=== PATIENT | male | born 1990 | race Hispanic/Latino ===

== ENCOUNTER 2022-05-21 07:27 | Emergency (ER) | payer OTHER ==
[~2022-05-21] VITALS: Ht 175.3 cm; Wt 77.5 kg
[2022-05-21] MEDS ORDERED: KETOROLAC 60MG 2ML VIAL IM ONE (09:25)
[2022-05-21] MEDS ORDERED: methocarbamoL 750 MG TAB PO ONE (09:25)
[2022-05-21] MEDS ORDERED: diazePAM 5MG TABLET PO ONE (10:20)
[2022-05-21] MEDS ORDERED: LIDOCAINE 5% (LIDODERM) PATCH TD ONE (10:20)
[2022-05-21] MEDS ORDERED: NAPR-837 PO (10:55)
[2022-05-21] MEDS ORDERED: METH-1165 PO (10:55)
[2022-05-21] MEDS ORDERED: LIDO5DIS41 TD (10:55)
[2022-05-21 11:00] VITALS: BP 116/68
[2022-05-21] MEDS ORDERED: **NOTE PATIENT COMMENT** MISC XX SCH (21:00)
== END 2022-05-21 11:00 | disposition home or self-care (01) ==
LOC: M ED 07:27 → EDBD 07:27 → M ED 11:00
DX: S39.012A Strain of muscle, fascia and tendon of lower back, initial encounter (principal); X58.XXXA Exposure to other specified factors, initial encounter; Y92.89 Other specified places as the place of occurrence of the external cause; Z91.018 Allergy to other foods; Z87.891 Personal history of nicotine dependence
CPT/HCPCS: 96372; 99284; J1885

== ENCOUNTER 2023-05-17 08:47 | Inpatient (IN) | payer OTHER ==
[~2023-05-17] VITALS: Ht 175.3 cm; Wt 88.7 kg
[~2023-05-17 08:47] MED LIST: LIDO5DIS41 TD; METH-1165 PO; NAPR-837 PO
[2023-05-17 09:36] LABS: BASO # 0.1 10^3/uL (0.0-0.2); BASO % 0.8 % (0.0-1.0); EOS # 0.1 10^3/uL (0.0-0.5); EOS % 1.3 % (0.0-3.0); HEMATOCRIT 43.6 % (42.0-52.0); HEMOGLOBIN 14.6 g/dl (13.5-17.5); LYMPH # 2.4 10^3/uL (1.5-5.0); LYMPH % 38.2 % (24.0-44.0); MEAN CORPUSCULAR HEMOGLOBIN 29.4 pg (27.0-33.0); MEAN CORPUSCULAR HGB CONC 33.5 g/dl (32.0-36.5); MEAN CORPUSCULAR VOLUME 87.9 fl (80.0-96.0); MONO # 0.4 10^3/uL (0.0-0.8); MONO % 6.3 % (2.0-8.0); NEUTROPHILS # 3.3 10^3/uL (1.5-8.5); NEUTROPHILS % 52.9 % (36.0-66.0); PLATELET COUNT, AUTOMATED 307 10^3/uL (150-450); RED BLOOD COUNT 4.96 10^6/uL (4.30-6.10); WHITE BLOOD COUNT 6.2 10^3/uL (4.0-10.0)
[2023-05-17 09:49] LABS: INR 1.01; PARTIAL THROMBOPLASTIN TIME 24.3 SECONDS (24.8-34.2)
[2023-05-17 10:07] LABS: LIPASE 29 U/L (12-53)
[2023-05-17 10:08] LABS: AMYLASE 88 U/L (30-118)
[2023-05-17 10:09] LABS: ALBUMIN 4.2 G/DL (3.2-5.2); ALKALINE PHOSPHATASE 88 U/L (46-116); ALT/SGPT 12 U/L (7.0-40); AST/SGOT 21 U/L (<34); BILIRUBIN,DIRECT 0.2 MG/DL (<0.4); BILIRUBIN,TOTAL 0.5 MG/DL (0.3-1.2); BLOOD UREA NITROGEN 17 MG/DL (9-23); CALCIUM LEVEL 9.6 MG/DL (8.5-10.1); CARBON DIOXIDE LEVEL 26 MMOL/L (20-31); CHLORIDE LEVEL 104 MMOL/L (98-107); CK-MB VALUE MASS < 1.0 NG/ML (<3.6); CREATININE FOR GFR 1.03 MG/DL (0.70-1.30); GLOMERULAR FILTRATION RATE > 60.0 (>60); GLUCOSE, FASTING 94 MG/DL (60-100); POTASSIUM SERUM 4.5 MMOL/L (3.5-5.1); SODIUM LEVEL 141 MMOL/L (136-145); TOTAL PROTEIN 7.8 G/DL (5.7-8.2)
[2023-05-17 10:10] LABS: RSV AMPLIFICATION NEGATIVE (NEGATIVE)
[2023-05-17] MEDS ORDERED: MORPHINE 2 MG/ML 1ML VIAL IV PRN (10:10)
[2023-05-17 10:13] LABS: CPK CREATINE PHOSPHOKINASE 169 U/L (46-171); MB/CK RELATIVE INDEX 0.59 (< OR =4)
[2023-05-17] MEDS ORDERED: NS 1,000 ML IV ONE ×2 (10:30→12:25)
[2023-05-17] MEDS: MORPHINE 4 MG/ML 1ML VIAL IV PRN ×2 (10:51→11:57)
[2023-05-17] MEDS ORDERED: ISOVUE-370 76% 100ML VIAL As Ordered ONE (10:57)
[2023-05-17 12:11] LABS: APPEARANCE, URINE CLEAR (CLEAR); BACTERIA, URINE AUTO NEGATIVE (NEGATIVE); BILIRUBIN, URINE AUTO NEGATIVE (NEGATIVE); BLOOD, URINE BLOOD NEGATIVE (NEGATIVE); COLOR, URINE YELLOW (YELLOW); GLUCOSE, URINE (UA) AUTO NEGATIVE (NEGATIVE); KETONE, URINE AUTO NEGATIVE (NEGATIVE); LEUKOCYTE ESTERASE, URINE AUTO NEGATIVE (NEGATIVE); NITRITE, URINE AUTO NEGATIVE (NEGATIVE); PROTEIN, URINE AUTO NEGATIVE (NEGATIVE); RBC, URINE AUTO 0 /HPF (0-3); SPECIFIC GRAVITY URINE AUTO 1.033 (1.002-1.035); SQUAMOUS EPITHELIAL CELL UR AU 0 /HPF (0-6); UROBILINOGEN, URINE AUTO 0.2 mg/dL (0.0-2.0); WBC, URINE AUTO 1 /HPF (0-3)
[2023-05-17] MEDS ORDERED: MED REC IN PROGRESS XX SCH (12:25)
[2023-05-17] MEDS ORDERED: GLUCAGON INJ 1MG VIAL SC PRN (12:30)
[2023-05-17] MEDS ORDERED: GLUCOSE 4GM CHEW TABLET PO PRN (12:30)
[2023-05-17] MEDS ORDERED: DEXTROSE 50% 50ML SYRINGE IV PRN (12:30)
[2023-05-17] MEDS ORDERED: KETOROLAC 30 MG/ML 1ML VIAL IV ONE (12:30)
[2023-05-17] MEDS ORDERED: NALOXONE INJ 0.4MG/1ML VIAL IV PRN (12:30)
[2023-05-17] MEDS ORDERED: PEPT262S PO (12:58)
[2023-05-17] MEDS ORDERED: CETI-24 PO (12:58)
[2023-05-17] MEDS ORDERED: HOME MED LIST COMPLETE! XX SCH (13:05)
[2023-05-17] MEDS: MORPHINE 2 MG/ML 1ML VIAL IV PRN ×4 (13:51→23:13)
[2023-05-17 15:43] VITALS: BP 145/81; TEMP 99.5; O2SAT 98
[2023-05-17] MEDS: NS 1,000 ML IV SCH (17:39)
[2023-05-17 20:00] VITALS: BP 132/73; TEMP 98.7; O2SAT 96
[2023-05-18] MEDS: MORPHINE 2 MG/ML 1ML VIAL IV PRN ×3 (02:36→07:59)
[2023-05-18] MEDS: NS 1,000 ML IV SCH ×2 (02:36→08:30)
[2023-05-18 06:00] VITALS: BP 128/63; TEMP 97.3; O2SAT 97
[2023-05-18] MEDS ORDERED: SENOKOT S TAB PO PRN (08:45)
[2023-05-18] MEDS ORDERED: PERCOCET 5MG/325MG TAB PO ONE (08:45)
[2023-05-18] MEDS ORDERED: MIRALAX *UNIT DOSE* 17GM PACKET PO PRN (08:45)
[2023-05-18] MEDS ORDERED: PERCOCET 5MG/325MG TAB PO PRN ×2 (08:45)
[2023-05-18] MEDS ORDERED: MOM 30ML SUSPENSION UDC PO PRN (08:45)
[2023-05-18] MEDS ORDERED: KETOROLAC 30 MG/ML 1ML VIAL IV ONE (08:50)
[2023-05-18] MEDS ORDERED: ENOXAPARIN 40MG/0.4ML SYRINGE (J1650 PER 10MG) SC ONE (12:05)
[2023-05-18] MEDS ORDERED: MIRA3350 PO ×2 (12:30→14:46)
[2023-05-18] MEDS ORDERED: SENN-52 PO (12:30)
[2023-05-18] MEDS ORDERED: PERC5TAB12 PO ×2 (12:30→14:46)
[2023-05-18] MEDS ORDERED: ASPI81CH33 PO ×2 (12:36→13:10)
[2023-05-18] MEDS ORDERED: SENO8.6T10 PO (14:46)
[2023-05-18] MEDS ORDERED: ECOT81TA5 PO (14:48)
[2023-05-18] MEDS ORDERED: KETOROLAC 30 MG/ML 1ML VIAL IV SCH (15:00)
[2023-05-19] MEDS ORDERED: ENOXAPARIN 40MG/0.4ML SYRINGE (J1650 PER 10MG) SC SCH (09:00)
== END 2023-05-18 15:26 | disposition home or self-care (01) | DRG 563 ==
LOC: EDBD 08:47 → M ED 08:47 → M ED INP 12:22 → ENRESERV 15:15 → M MS4PR 16:00
PROVIDERS: ADMIT General Practice; ATTEND General Practice
DX: S82.872A Displaced pilon fracture of left tibia, initial encounter for closed fracture (principal); S92.322A Displaced fracture of second metatarsal bone, left foot, initial encounter for closed fracture; S92.332A Displaced fracture of third metatarsal bone, left foot, initial encounter for closed fracture; Z87.891 Personal history of nicotine dependence; V28.49XA Other motorcycle driver injured in noncollision transport accident in traffic accident, initial encounter; Y92.410 Unspecified street and highway as the place of occurrence of the external cause; Y93.89 Activity, other specified; Y99.8 Other external cause status

== ENCOUNTER 2023-05-28 07:03 | Inpatient (IN) | payer OTHER ==
[~2023-05-28] VITALS: Ht 175.3 cm; Wt 75.8 kg
[~2023-05-28 07:03] MED LIST changes: +ACET-897 PO; +ASPI81CH33 PO; +CETI-24 PO; +ECOT81TA5 PO; +MIRA3350 PO; +PEPT262S PO; +PERC5TAB12 PO; +SENN-52 PO; +SENO8.6T10 PO; +TRANEXAMIC ACID INJection 1,000 MG in NS 100 ML IV ONE; +ceFAZolin SOD 2 GM in IV 1 EA IV ONE
[2023-05-28] MEDS ORDERED: LR 1,000 ML IV SCH ×3 (07:15→17:35)
[2023-05-28] MEDS ORDERED: LIDOCAINE 1% SDV 5ML VIAL PN ONE (07:15)
[2023-05-28] MEDS ORDERED: EPINEPHrine INJ 1 MG/ML 1ML AMP PN ONE (07:15)
[2023-05-28] MEDS ORDERED: dexAMETHasone 10MG/1ML VIAL PRES.FREE PN ONE (07:15)
[2023-05-28] MEDS ORDERED: fentaNYL 100 MCG/2 ML INJECTION IV PRN ×2 (07:15→15:55)
[2023-05-28] MEDS ORDERED: ROPIvacaine 0.5% 30ML VIAL PN ONE ×2 (07:15→08:10)
[2023-05-28] MEDS: MIDAZOLAM INJ 2MG/2ML VIAL IV PRN ×2 (08:51→08:53)
[2023-05-28] MEDS ORDERED: LIDOCAINE 2% 100MG/5ML SDV (FOR ANES.) As Ordered ONE (09:47)
[2023-05-28] MEDS ORDERED: MIDAZOLAM INJ 2MG/2ML VIAL As Ordered ONE (09:47)
[2023-05-28] MEDS ORDERED: ROCURONIUM BROMIDE 50MG/5ML VIAL As Ordered ONE ×4 (09:47→14:46)
[2023-05-28] MEDS ORDERED: fentaNYL 100 MCG/2 ML INJECTION As Ordered ONE ×2 (09:47→09:54)
[2023-05-28] MEDS ORDERED: propofoL 200 MG/20 ML VIAL As Ordered ONE (09:47)
[2023-05-28] MEDS ORDERED: ONDANSETRON 4MG 2ML VIAL As Ordered ONE (09:47)
[2023-05-28] MEDS ORDERED: SUGAMMADEX SODIUM 500 MG/5 ML VIAL (BRIDION) As Ordered ONE (09:54)
[2023-05-28] MEDS ORDERED: TRANEXAMIC ACID 100 MG/ML 10ML VIAL As Ordered ONE ×3 (10:07→12:29)
[2023-05-28] MEDS ORDERED: PHENYLEPHRINE 10MG/ML 1ML VIAL As Ordered ONE (10:50)
[2023-05-28] MEDS ORDERED: ACETAMINOPHEN 1000MG 100ML IV BAG As Ordered ONE (12:12)
[2023-05-28] MEDS ORDERED: dexmedeTOMIDine (4MCG/ML)200MCG/50ML BTL (PRECEDEX) As Ordered ONE (12:13)
[2023-05-28] MEDS ORDERED: ceFAZolin 2 GM/D5W 50 ML IV BAG As Ordered ONE (13:23)
[2023-05-28] MEDS ORDERED: VANCOMYCIN 1000MG/20ML VIAL As Ordered ONE (15:03)
[2023-05-28] MEDS ORDERED: HYDROMORPHONE HCL 0.5 MG/ 0.5 ML SYRINGE IV PRN (15:55)
[2023-05-28] MEDS ORDERED: oxyCODONE 5MG TAB PO PRN (15:55)
[2023-05-28] MEDS ORDERED: ONDANSETRON 4MG 2ML VIAL IV PRN (15:55)
[2023-05-28 17:45] VITALS: BP 160/78; TEMP 99.1; O2SAT 98
[2023-05-28 18:15] VITALS: BP 139/76; TEMP 98.7; O2SAT 97
[2023-05-28] MEDS ORDERED: MIRALAX *UNIT DOSE* 17GM PACKET PO PRN (18:20)
[2023-05-28] MEDS ORDERED: PERCOCET 5MG/325MG TAB PO PRN (18:20)
[2023-05-28] MEDS ORDERED: MORPHINE 2 MG/ML 1ML VIAL IV PRN (18:20)
[2023-05-28] MEDS ORDERED: ACET1TAB55 PO (19:09)
[2023-05-28] MEDS ORDERED: CELE1CAP9 PO (19:14)
[2023-05-28] MEDS ORDERED: GABA-282 PO (19:14)
[2023-05-28 19:15] VITALS: BP 146/73; TEMP 99.3; O2SAT 99
[2023-05-28] MEDS ORDERED: HOME MED LIST COMPLETE! XX SCH (19:20)
[2023-05-28 20:15] VITALS: BP 144/72; TEMP 100; O2SAT 97
[2023-05-28] MEDS: SENNA 8.6 MG TAB (SENOKOT) PO SCH (20:54)
[2023-05-28] MEDS: DOCUSATE SODIUM 100MG CAPSULE PO SCH (20:54)
[2023-05-28] MEDS: ACETAMINOPHEN TAB 650MG DOSE (2X325MG) PO PRN (21:11)
[2023-05-28 21:15] VITALS: BP 148/70; TEMP 99; O2SAT 96
[2023-05-28 22:15] VITALS: BP 141/64; TEMP 98.4; O2SAT 97
[2023-05-29] MEDS ORDERED: MORPHINE 2 MG/ML 1ML VIAL IV ONE (02:00)
[2023-05-29] MEDS ORDERED: KETOROLAC 30 MG/ML 1ML VIAL IV ONE (02:00)
[2023-05-29 02:15] VITALS: BP 178/90; TEMP 97; O2SAT 96
[2023-05-29] MEDS: PERCOCET 5MG/325MG TAB PO PRN ×2 (03:21→07:49)
[2023-05-29] MEDS ORDERED: MORPHINE 4 MG/ML 1ML VIAL IV PRN (05:00)
[2023-05-29 06:00] VITALS: BP 156/84; TEMP 97.6; O2SAT 96
[2023-05-29 06:14] VITALS: BP 156/84; TEMP 97.6; O2SAT 96
[2023-05-29 06:41] LABS: HEMATOCRIT 34.2 % (42.0-52.0); HEMOGLOBIN 11.3 g/dl (13.5-17.5); MEAN CORPUSCULAR HEMOGLOBIN 28.8 pg (27.0-33.0); PLATELET COUNT, AUTOMATED 465 10^3/uL (150-450); RED BLOOD COUNT 3.93 10^6/uL (4.30-6.10)
[2023-05-29] MEDS: ACETAMINOPHEN TAB 650MG DOSE (2X325MG) PO PRN ×4 (07:06→20:22)
[2023-05-29 07:07] LABS: ALBUMIN 3.6 G/DL (3.2-5.2); ALKALINE PHOSPHATASE 94 U/L (46-116); ALT/SGPT < 9 U/L (7.0-40); AST/SGOT 63 U/L (<34); BILIRUBIN,TOTAL 0.8 MG/DL (0.3-1.2); BLOOD UREA NITROGEN 19 MG/DL (9-23); CALCIUM LEVEL 8.8 MG/DL (8.5-10.1); CARBON DIOXIDE LEVEL 24 MMOL/L (20-31); CHLORIDE LEVEL 102 MMOL/L (98-107); CREATININE FOR GFR 0.98 MG/DL (0.70-1.30); GLOMERULAR FILTRATION RATE > 60.0 (>60); GLUCOSE, FASTING 115 MG/DL (60-100); POTASSIUM SERUM 4.2 MMOL/L (3.5-5.1); SODIUM LEVEL 136 MMOL/L (136-145); TOTAL PROTEIN 7.1 G/DL (5.7-8.2)
[2023-05-29] MEDS: DOCUSATE SODIUM 100MG CAPSULE PO SCH ×2 (07:49→20:22)
[2023-05-29] MEDS: GABAPENTIN 300 MG CAP PO SCH ×3 (07:49→20:22)
[2023-05-29] MEDS: ASPIRIN 81MG ENTERIC TABLET PO SCH ×2 (07:49→20:22)
[2023-05-29] MEDS ORDERED: HYDROMORPHONE HCL 0.5 MG/ 0.5 ML SYRINGE IV PRN ×2 (07:55→08:00)
[2023-05-29] MEDS ORDERED: NALOXONE INJ 0.4MG/1ML VIAL IV PRN (08:00)
[2023-05-29] MEDS: HYDROMORPHONE HCL 0.5 MG/ 0.5 ML SYRINGE IV PRN ×4 (09:07→21:52)
[2023-05-29 14:00] VITALS: BP 160/84; TEMP 98.7; O2SAT 99
[2023-05-29] MEDS: ONDANSETRON 4MG 2ML VIAL IV PRN (16:51)
[2023-05-29] MEDS: SENNA 8.6 MG TAB (SENOKOT) PO SCH (20:22)
[2023-05-29 20:30] VITALS: BP 143/75; TEMP 98.8; O2SAT 94
[2023-05-30] MEDS: ACETAMINOPHEN TAB 650MG DOSE (2X325MG) PO PRN ×2 (01:01→05:05)
[2023-05-30] MEDS: HYDROMORPHONE HCL 0.5 MG/ 0.5 ML SYRINGE IV PRN (01:55)
[2023-05-30 05:35] VITALS: BP 160/91; TEMP 99; O2SAT 97
[2023-05-30 06:07] LABS: HEMATOCRIT 35.7 % (42.0-52.0); HEMOGLOBIN 11.7 g/dl (13.5-17.5); MEAN CORPUSCULAR HEMOGLOBIN 28.3 pg (27.0-33.0); MEAN CORPUSCULAR HGB CONC 32.8 g/dl (32.0-36.5); MEAN CORPUSCULAR VOLUME 86.2 fl (80.0-96.0); PLATELET COUNT, AUTOMATED 484 10^3/uL (150-450); RED BLOOD COUNT 4.14 10^6/uL (4.30-6.10); WHITE BLOOD COUNT 13.7 10^3/uL (4.0-10.0)
[2023-05-30 06:28] LABS: ALBUMIN 3.6 G/DL (3.2-5.2); ALKALINE PHOSPHATASE 98 U/L (46-116); ALT/SGPT 10 U/L (7.0-40); AST/SGOT 65 U/L (<34); BILIRUBIN,TOTAL 0.5 MG/DL (0.3-1.2); BLOOD UREA NITROGEN 14 MG/DL (9-23); CALCIUM LEVEL 9.7 MG/DL (8.5-10.1); CARBON DIOXIDE LEVEL 28 MMOL/L (20-31); CHLORIDE LEVEL 100 MMOL/L (98-107); CREATININE FOR GFR 0.97 MG/DL (0.70-1.30); GLOMERULAR FILTRATION RATE > 60.0 (>60); GLUCOSE, FASTING 103 MG/DL (60-100); POTASSIUM SERUM 4.9 MMOL/L (3.5-5.1); SODIUM LEVEL 137 MMOL/L (136-145); TOTAL PROTEIN 7.6 G/DL (5.7-8.2)
[2023-05-30] MEDS ORDERED: KETOROLAC 30 MG/ML 1ML VIAL IV ONE (08:00)
[2023-05-30] MEDS ORDERED: MORPHINE 2 MG/ML 1ML VIAL IV PRN (08:05)
[2023-05-30] MEDS ORDERED: PERCOCET 5MG/325MG TAB PO PRN (08:05)
[2023-05-30] MEDS: DOCUSATE SODIUM 100MG CAPSULE PO SCH ×2 (08:35→20:46)
[2023-05-30] MEDS: ASPIRIN 81MG ENTERIC TABLET PO SCH ×2 (08:35→20:46)
[2023-05-30] MEDS: GABAPENTIN 300 MG CAP PO SCH ×3 (08:35→20:46)
[2023-05-30] MEDS: ONDANSETRON 4MG 2ML VIAL IV PRN (11:10)
[2023-05-30] MEDS: PERCOCET 5MG/325MG TAB PO PRN ×3 (11:11→20:46)
[2023-05-30] MEDS ORDERED: ACETAMINOPHEN TAB 650MG DOSE (2X325MG) PO SCH (12:00)
[2023-05-30 14:00] VITALS: BP 132/69; TEMP 98.1; O2SAT 98
[2023-05-30] MEDS: IBUPROFEN 600MG TAB PO SCH ×2 (18:37→23:24)
[2023-05-30 20:16] VITALS: BP_SYST 112; BP_SYST 141; BP_DIAS 79; BP_DIAS 81; TEMP 96.9; O2SAT 98
[2023-05-30] MEDS: SENNA 8.6 MG TAB (SENOKOT) PO SCH (20:47)
[2023-05-31] MEDS: PERCOCET 5MG/325MG TAB PO PRN ×2 (00:56→05:08)
[2023-05-31 05:05] VITALS: BP 137/86; TEMP 97.8; O2SAT 100
[2023-05-31] MEDS: IBUPROFEN 600MG TAB PO SCH ×2 (05:07→12:24)
[2023-05-31 06:47] LABS: HEMATOCRIT 34.7 % (42.0-52.0); HEMOGLOBIN 11.3 g/dl (13.5-17.5); MEAN CORPUSCULAR HEMOGLOBIN 28.7 pg (27.0-33.0); MEAN CORPUSCULAR HGB CONC 32.6 g/dl (32.0-36.5); MEAN CORPUSCULAR VOLUME 88.1 fl (80.0-96.0); PLATELET COUNT, AUTOMATED 486 10^3/uL (150-450); RED BLOOD COUNT 3.94 10^6/uL (4.30-6.10); WHITE BLOOD COUNT 9.5 10^3/uL (4.0-10.0)
[2023-05-31 07:19] LABS: ALBUMIN 3.7 G/DL (3.2-5.2); ALKALINE PHOSPHATASE 91 U/L (46-116); ALT/SGPT < 9 U/L (7.0-40); AST/SGOT 44 U/L (<34); BILIRUBIN,TOTAL 0.3 MG/DL (0.3-1.2); BLOOD UREA NITROGEN 14 MG/DL (9-23); CARBON DIOXIDE LEVEL 28 MMOL/L (20-31); CHLORIDE LEVEL 103 MMOL/L (98-107); CREATININE FOR GFR 0.96 MG/DL (0.70-1.30); GLOMERULAR FILTRATION RATE > 60.0 (>60); GLUCOSE, FASTING 95 MG/DL (60-100); POTASSIUM SERUM 3.8 MMOL/L (3.5-5.1); SODIUM LEVEL 138 MMOL/L (136-145); TOTAL PROTEIN 7.8 G/DL (5.7-8.2)
[2023-05-31] MEDS: GABAPENTIN 300 MG CAP PO SCH (08:47)
[2023-05-31] MEDS: DOCUSATE SODIUM 100MG CAPSULE PO SCH (08:47)
[2023-05-31] MEDS: ASPIRIN 81MG ENTERIC TABLET PO SCH (08:47)
[2023-05-31] MEDS ORDERED: IBUP-1022 PO (09:50)
[2023-05-31] MEDS ORDERED: ONDANSETRON 4MG TAB PO PRN (09:50)
[2023-05-31] MEDS ORDERED: PERC5TAB12 PO (09:50)
[2023-05-31] MEDS ORDERED: SENN-188 PO (09:50)
[2023-05-31] MEDS ORDERED: COLA100C5 PO (09:50)
== END 2023-05-31 13:10 | disposition home health service (06) | DRG 494 ==
LOC: M SDC 07:03 → M ED INP 17:45 → M MS4PR 18:00 → M PM&R 20:10 → M MS4PR 20:12 → M PM&R 05-29 01:37 → M MS4PR 05-29 06:39
PROVIDERS: ADMIT Internal Medicine; ATTEND Internal Medicine
PROC: 0QSH04Z Reposition Left Tibia with Internal Fixation Device, Open Approach (ICD-10-PCS; principal; 2023-05-29)
DX: S82.872A Displaced pilon fracture of left tibia, initial encounter for closed fracture (principal); R20.0 Anesthesia of skin; Z87.891 Personal history of nicotine dependence; V28.39XA Person boarding or alighting other motorcycle injured in noncollision transport accident, initial encounter; Y92.410 Unspecified street and highway as the place of occurrence of the external cause; Y93.89 Activity, other specified; Y99.8 Other external cause status